=== PATIENT | female | born 1995 | race American Indian/Alaskan Native ===

== ENCOUNTER 2018-12-03 10:38 | Emergency (ER) | payer SELFPAY ==
[2018-12-03] MEDS ORDERED: NORCO 5/325 PO ONE (11:04)
--- NOTE | 2018-12-03 11:08 | Emergency Department Report ---
ED ENT HPI - General Chief complaint: Dental/Oral Stated complaint: TOOTH PAIN Time Seen by Provider: 12/03/18 10:57 Source: patient Mode of arrival: Ambulatory Limitations: No Limitations - History of Present Illness Initial comments: 23-year-old female with past medical history diabetes, CAD, anxiety, cholesterol, hypertension, hypercoagulable disorder currently on Coumadin presents to the hospital with complaints of toothache worsening over the last 2 weeks. Pain increased last night and is now moderate to severe. She states this her right side upper and lower wisdom teeth. Patient denies facial swelling, trauma, or fever. He has an appointment with [facility] scheduled in April. - Related Data Previous Rx's Medication Instructions Recorded Last Taken Type Clindamycin [Clindamycin CAP] 450 mg PO Q8HR 7 Days capsule 12/03/18 Unknown Rx HYDROcodone/APAP 5-325 [Del[place] 1 each PO Q6HR PRN #20 tablet 12/03/18 Unknown Rx 5/325] Allergies Allergy/AdvReac Type Severity Reaction Status Date / Time Penicillins Allergy Hives Verified 12/03/18 10:42 ED Dental HPI - General Chief complaint: Dental/Oral Stated complaint: TOOTH PAIN Time Seen by Provider: 12/03/18 10:57 Source: patient Mode of arrival: Ambulatory Limitations: No Limitations - Related Data Previous Rx's Medication Instructions Recorded Last Taken Type Clindamycin [Clindamycin CAP] 450 mg PO Q8HR 7 Days capsule 12/03/18 Unknown Rx HYDROcodone/APAP 5-325 [[place] 1 each PO Q6HR PRN #20 tablet 12/03/18 Unknown Rx 5/325] Allergies Allergy/AdvReac Type Severity Reaction Status Date / Time Penicillins Allergy Hives Verified 12/03/18 10:42 ED Review of Systems ROS: Stated complaint: TOOTH PAIN Other details as noted in HPI Comment: All other systems reviewed and negative ED Past Medical Hx - Past Medical History Hx Hypertension: Yes Hx Heart Attack/AMI: Yes Hx Diabetes: Yes Hx Psychiatric Treatment: Yes (anxiety) Additional medical history: high cholesterol. Hypercoagulable disorder - Surgical History Hx Coronary Stent: Yes - Social History Smoking Status: Never Smoker Substance Use Type: None - Medications Home Medications: Home Medications Medication Instructions Recorded Confirmed Last Taken Type Clindamycin [Clindamycin CAP] 450 mg PO Q8HR 7 Days capsule 12/03/18 Unknown Rx HYDROcodone/APAP 5-325 [[place] 1 each PO Q6HR PRN #20 tablet 12/03/18 Unknown Rx 5/325] ED Physical Exam - General Limitations: No Limitations - Other Other exam information: General: No limitations, patient is alert in no acute distress Head exam: Atraumatic, normocephalic Eyes exam: Normal appearance ENT: Moist mucous membrane, tube #1 is growing lateral into tooth #2 and painful to percussion. Tooth #32 is also painful to percussion. No facial or gum swelling noted. Neck exam: Normal inspection, full range of motion, no meningismus nontender Respiratory exam: Clear to auscultation bilateral, no wheezes, rales, crackles Cardiovascular: Normal rate and rhythm, normal heart sounds Abdomen: Soft, nondistended, and nontender, with normal bowel sounds, no rebound, or guarding Extremity: Full range of motion normal inspection no deformity Back: Normal Inspection, full range of motion, no tenderness Neurologic: Alert, oriented x3, cranial nerves intact, no motor or sensory deficit Psychiatric: normal affect, normal mood Skin: Warm, dry, intact ED Course Vital Signs 12/03/18 10:42 Temperature 99.1 F Pulse Rate 97 H Respiratory 18 Rate Blood Pressure 133/81 O2 Sat by Pulse 98 Oximetry ED Medical Decision Making - Medical Decision Making Patient provided Delavan for pain. Will be empirically covered with antibiotic for infection and encouraged to have more urgent dental follow-up. - Differential Diagnosis dental infection, abscess, dental pain Critical Care Time: No Critical care attestation.: If time is entered above; I have spent that time in minutes in the direct care of this critically ill patient, excluding procedure time. ED Disposition Clinical Impression: Pain, dental Disposition: DC-01 TO HOME OR SELFCARE Is pt being admited?: No Does the pt Need Aspirin: No Condition: Stable Instructions: Toothache (ED) Additional Instructions: Take the medication as prescribed. Follow-up with a dentist. Return if symptoms worsen as indicated by your discharge instructions Prescriptions: Clindamycin [Clindamycin CAP] 450 mg PO Q8HR 7 Days capsule HYDROcodone/APAP 5-325 [[place] 5/325] 1 each PO Q6HR PRN #20 tablet PRN Reason: Pain Referrals: dental clinic, [facility] [Other] - 3-5 Days [facility] [Outside] - 3-5 Days Time of Disposition: 11:09
[2018-12-04 13:54] VITALS: BP 133/81
== END 2018-12-03 11:34 | disposition home or self-care (01) ==
LOC: ED 10:38
DX: K08.89 Other specified disorders of teeth and supporting structures (principal); I10 Essential (primary) hypertension; I25.2 Old myocardial infarction; E11.9 Type 2 diabetes mellitus without complications; F41.9 Anxiety disorder, unspecified; E78.00 Pure hypercholesterolemia, unspecified; Z95.818 Presence of other cardiac implants and grafts; Z88.0 Allergy status to penicillin
CPT/HCPCS: 99282